=== PATIENT | female | born 1965 | race Caucasian/White ===

== ENCOUNTER 2018-06-27 09:34 | Emergency (ER) | payer BC, OTHER ==
[~2018-06-27] VITALS: Ht 172.7 cm; Wt 72.6 kg
[2018-06-27 10:08] VITALS: BP 163/84
== END 2018-06-27 11:05 | disposition home or self-care (01) ==
LOC: ER 09:42
DX: S39.012A Strain of muscle, fascia and tendon of lower back, initial encounter (principal); V43.62XA Car passenger injured in collision with other type car in traffic accident, initial encounter; Y93.89 Activity, other specified; Y99.8 Other external cause status; Y92.410 Unspecified street and highway as the place of occurrence of the external cause
CPT/HCPCS: 72100